=== PATIENT | male | born 1990 | race Caucasian/White ===

== ENCOUNTER 2018-02-06 18:53 | Emergency (ER) | payer MEDICAID, SELFPAY ==
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
[2018-02-06] MEDS ORDERED: AMOXicillin 250 MG CAP ONE (20:45)
[2018-02-06] MEDS ORDERED: Ibuprofen 200 MG TAB ONE (20:45)
== END 2018-02-06 20:52 | disposition home or self-care (01) ==
LOC: NAV ERS 18:53
DX: S02.609A Fracture of mandible, unspecified, initial encounter for closed fracture (principal); S01.01XA Laceration without foreign body of scalp, initial encounter; W50.0XXA Accidental hit or strike by another person, initial encounter
CPT/HCPCS: 12001; 70450; 70486; 72125

== ENCOUNTER 2021-01-14 23:35 | Emergency (ER) | payer OTHER, SELFPAY ==
[2021-01-15] MEDS ORDERED: Ventolin HFA Inhaler 60 PUFF INHALER ONE (00:07)
[2021-01-15] MEDS ORDERED: Azithromycin 250 MG TAB ONE (00:33)
== END 2021-01-15 00:35 | disposition home or self-care (01) ==
LOC: NAV ERS 23:35
DX: J20.9 Acute bronchitis, unspecified (principal); Z86.16 Personal history of COVID-19
CPT/HCPCS: 71045; 93005

== ENCOUNTER 2021-06-20 17:45 | Emergency (ER) | payer OTHER, SELFPAY ==
[2021-06-20] MEDS ORDERED: Lidocaine 1% (PF) 30 ML VIAL ONE (18:01)
[2021-06-20] MEDS ORDERED: Bacitracin 1 PK ONE (18:02)
[2021-06-20] MEDS ORDERED: Acetaminophen 325 MG TAB ONE (18:02)
[2021-06-20] MEDS ORDERED: Erythromycin Base 0.5% Oint 1 GM TUBE ONE (19:20)
[2021-06-20] MEDS ORDERED: Amoxicillin/Potassium Clav 875 MG TAB ONE (19:20)
== END 2021-06-20 19:36 | disposition home or self-care (01) ==
LOC: NAV ERS 17:45
DX: S01.511A Laceration without foreign body of lip, initial encounter (principal); S05.02XA Injury of conjunctiva and corneal abrasion without foreign body, left eye, initial encounter; Y04.2XXA Assault by strike against or bumped into by another person, initial encounter
CPT/HCPCS: 40650; 70450; 70486; J2001